=== PATIENT | male | born 1950 | race Caucasian/White ===

== ENCOUNTER 2022-02-18 16:11 | Inpatient (IN) ==
[2022-02-18 19:31] LABS: ABS Lymphocytes 0.3 10^3/ul (1.0-4.8); ABS Monocytes 0.6 10^3/ul (0-0.8); ABS Neutrophils 9.1 10^3/ul (1.5-7.7); Hematocrit 29 % (42-52); Hemoglobin 9.4 g/dL (14.0-18.0); Lymphocyte % 3.5 %; Mean Corpuscular HGB Conc 33 g/dL (31-36); Mean Corpuscular Hemoglobin 29 pg (27-31); Mean Corpuscular Volume 87 fL (80-94); Mean Platelet Volume 9.4 fL (7.4-10.4); Platelet Count 144 10^3/uL (150-450); Red Cell Distribution Width 18 % (10-15); White Blood Count 10.1 10^3/uL (3.5-10.8)
[2022-02-18] MEDS ORDERED: Piperacillin/Tazobac ADVAN 3.375 GM in NS 0.9% 100 ml BAG 100 ML IV ONE (20:13)
[2022-02-18 20:25] LABS: ALT 274 U/L (7-52); AST 137 U/L (13-39); Albumin 3.7 g/dL (3.2-5.2); Albumin/Globulin Ratio 1.6 (1-3); Alkaline Phosphatase 355 U/L (35-149); Anion Gap 14 mmol/L (2-11); Blood Urea Nitrogen 17 mg/dL (6-24); C Reactive Protein 227.03 mg/L (<8.01); CO2 Carbon Dioxide 25 mmol/L (22-32); Calcium 8.6 mg/dL (8.6-10.3); Chloride 100 mmol/L (101-111); Globulin 2.3 g/dL (2-4); Glucose 166 mg/dL (70-100); Magnesium 1.6 mg/dL (1.9-2.7); Potassium 4.2 mmol/L (3.5-5.0); Sodium 139 mmol/L (135-145); eGFR CKD-EPI 72.9 (>60)
[2022-02-18 20:33] LABS: Lipase < 10 U/L (11.0-82.0)
[2022-02-18] MEDS ORDERED: Zosyn per Pharmacy NOTE FOLLOW UP SCH (21:00)
[2022-02-18] MEDS ORDERED: Magnesium Sulfate IV 3 GM in NS 0.9% 100 ml BAG 100 ML IVPB ONE (21:10)
[2022-02-18] MEDS: Pantoprazole VIAL 40 MG VIAL IV SCH (21:54)
[2022-02-18] MEDS ORDERED: Magnesium Sulfate 2 GM IV (Premix) IVPB ONE (22:00)
[2022-02-18] MEDS ORDERED: Iohexol 350 (CONTRAST) 500 ML MDV IV ONE (22:40)
[2022-02-18] MEDS ORDERED: Magnesium Sulfate 1 GM IV 1 GM/100 ML BAG IV ONE (23:00)
[2022-02-18] MEDS: Insulin GLARGINE 100 un/ml 10 ml VIAL SUBCUT SCH (23:30)
[2022-02-19] MEDS: ZOSYN 3.375 GM Q8H per EXTENDED INFUSION IV SCH ×3 (02:48→19:30)
[2022-02-19 03:08] LABS: Urine Appearance Cloudy; Urine Color Yellow; Urine Ketones Negative (Negative); Urine Specific Gravity 1.015 (1.005-1.030); Urine Urobilinogen 1.0 (Negative) (Negative); Urine pH 5.5 (5.0-9.0)
[2022-02-19 03:09] LABS: Urine Blood 3+ (Large) (Negative); Urine Glucose Negative (Negative); Urine Nitrite Negative (Negative); Urine Protein 1+ (30 mg/dL) (Negative)
[2022-02-19 03:18] LABS: Urine Bacteria Absent (Absent); Urine Red Blood Cell 3+(>10/hpf) (Absent); Urine Squamous Epithelial Cell Present (Absent); Urine White Blood Cell 1+(6-10/hpf) (Absent)
[2022-02-19 05:21] LABS: ABS Lymphocytes 0.7 10^3/ul (1.0-4.8); ABS Monocytes 1.1 10^3/ul (0-0.8); ABS Neutrophils 10.5 10^3/ul (1.5-7.7); Hematocrit 26 % (42-52); Hemoglobin 8.7 g/dL (14.0-18.0); Lymphocyte % 5.9 %; Mean Corpuscular HGB Conc 33 g/dL (31-36); Mean Corpuscular Hemoglobin 29 pg (27-31); Mean Corpuscular Volume 86 fL (80-94); Mean Platelet Volume 9.9 fL (7.4-10.4); Platelet Count 141 10^3/uL (150-450); Red Blood Count 3.03 10^6 /uL (4.18-5.48); Red Cell Distribution Width 18 % (10-15); White Blood Count 12.3 10^3/uL (3.5-10.8)
[2022-02-19 05:25] LABS: INR 1.39 (0.89-1.11)
[2022-02-19 05:42] LABS: Albumin 3.3 g/dL (3.2-5.2); Albumin/Globulin Ratio 1.5 (1-3); Calcium 8.3 mg/dL (8.6-10.3); Globulin 2.2 g/dL (2-4); Magnesium 2.7 mg/dL (1.9-2.7); Potassium 3.7 mmol/L (3.5-5.0); Total Bilirubin 1.3 mg/dL (0.2-1.0); Total Protein 5.5 g/dL (6.4-8.9); eGFR CKD-EPI 88.4 (>60)
[2022-02-19] MEDS ORDERED: Albuterol HFA INHALER 8 gm MDI INH SCH (07:00)
[2022-02-19] MEDS ORDERED: Perflutren Lipid Microsphere 3 ML VIAL ONE (08:09)
[2022-02-19] MEDS: Pantoprazole VIAL 40 MG VIAL IV SCH ×2 (10:16→21:23)
[2022-02-19 13:00] LABS: Hematocrit 30 % (42-52); Hemoglobin 9.7 g/dL (14.0-18.0)
[2022-02-19] MEDS ORDERED: Midazolam 10 mg/10 ml VIAL 1 mg/ml 10 ml VIAL (10 mg) ONE (15:09)
[2022-02-19] MEDS ORDERED: fentaNYL 100 mcg/2 ml 50 MCG/ML VIAL ONE (15:09)
[2022-02-19] MEDS ORDERED: PEG 3000 GI LAVAGE 1 GALLON PO ONE (20:30)
[2022-02-19] MEDS: Insulin GLARGINE 100 un/ml 10 ml VIAL SUBCUT SCH (21:23)
[2022-02-19] MEDS: PALIPERIDONE 1.5 MG PO SCH (21:32)
[2022-02-20] MEDS: ZOSYN 3.375 GM Q8H per EXTENDED INFUSION IV SCH ×3 (00:21→17:50)
[2022-02-20 05:47] LABS: ABS Lymphocytes 0.8 10^3/ul (1.0-4.8); ABS Monocytes 0.8 10^3/ul (0-0.8); ABS Neutrophils 5.7 10^3/ul (1.5-7.7); Eosinophil % 0.6 %; Hematocrit 26 % (42-52); Hemoglobin 8.5 g/dL (14.0-18.0); Lymphocyte % 10.8 %; Mean Corpuscular HGB Conc 33 g/dL (31-36); Mean Corpuscular Hemoglobin 29 pg (27-31); Mean Corpuscular Volume 86 fL (80-94); Mean Platelet Volume 10.1 fL (7.4-10.4); Platelet Count 142 10^3/uL (150-450); Red Blood Count 2.96 10^6 /uL (4.18-5.48); Red Cell Distribution Width 18 % (10-15); White Blood Count 7.3 10^3/uL (3.5-10.8)
[2022-02-20 06:28] LABS: Potassium 3.7 mmol/L (3.5-5.0); eGFR CKD-EPI 92.3 (>60)
[2022-02-20] MEDS: Pantoprazole VIAL 40 MG VIAL IV SCH (10:01)
[2022-02-20 14:27] LABS: ABS Basophils 0.1 10^3/ul (0-0.2); ABS Eosinophils 0.1 10^3/ul (0-0.6); ABS Lymphocytes 2.9 10^3/ul (1.0-4.8); ABS Monocytes 1.2 10^3/ul (0-0.8); ABS Neutrophils 7.2 10^3/ul (1.5-7.7); Eosinophil % 0.8 %; Hematocrit 28 % (42-52); Hemoglobin 8.9 g/dL (14.0-18.0); Lymphocyte % 25.4 %; Mean Corpuscular HGB Conc 32 g/dL (31-36); Mean Corpuscular Hemoglobin 28 pg (27-31); Mean Corpuscular Volume 87 fL (80-94); Mean Platelet Volume 9.8 fL (7.4-10.4); Nucleated Red Blood Cells % 0.1; Platelet Count 174 10^3/uL (150-450); Red Blood Count 3.17 10^6 /uL (4.18-5.48); Red Cell Distribution Width 18 % (10-15); White Blood Count 11.5 10^3/uL (3.5-10.8)
[2022-02-20] MEDS ORDERED: .Amiodarone 24HR ONLY IV Protocol Order Note IV ONE (14:35)
[2022-02-20] MEDS ORDERED: Amiodarone 360 MG IVPREMIX 360 MG/200 ML BAG IV SCH (14:45)
[2022-02-20 15:09] LABS: Albumin 3.2 g/dL (3.2-5.2); Albumin/Globulin Ratio 1.3 (1-3); Calcium 8.4 mg/dL (8.6-10.3); Globulin 2.5 g/dL (2-4); Magnesium 2.2 mg/dL (1.9-2.7); Potassium 3.4 mmol/L (3.5-5.0); Total Bilirubin 1.2 mg/dL (0.2-1.0); Total Protein 5.7 g/dL (6.4-8.9); eGFR CKD-EPI 77.2 (>60)
[2022-02-20] MEDS: KCL 20 MEQ/100 ML IVPREMIX 20 MEQ/100 ML BAG IV SCH ×2 (16:27→18:36)
[2022-02-20 18:09] LABS: High Sensitivity Troponin 1 Hr 375 pg/mL (<20)
[2022-02-20] MEDS ORDERED: Morphine 2 MG/ML SYRINGE IV ONE ×2 (18:19→23:22)
[2022-02-20] MEDS: Amiodarone 360 MG IVPREMIX 360 MG/200 ML BAG IV SCH (19:43)
[2022-02-20] MEDS: Insulin GLARGINE 100 un/ml 10 ml VIAL SUBCUT SCH (20:02)
[2022-02-20] MEDS: PALIPERIDONE 1.5 MG PO SCH (20:26)
[2022-02-20] MEDS ORDERED: Lidocaine PATCH 5% PATCH TRANSDERM ONE (23:22)
[2022-02-21] MEDS: ZOSYN 3.375 GM Q8H per EXTENDED INFUSION IV SCH ×3 (02:16→17:39)
[2022-02-21 04:38] LABS: Hematocrit 27 % (42-52); Hemoglobin 8.9 g/dL (14.0-18.0); Mean Corpuscular HGB Conc 33 g/dL (31-36); Mean Corpuscular Hemoglobin 28 pg (27-31); Mean Corpuscular Volume 85 fL (80-94); Mean Platelet Volume 9.6 fL (7.4-10.4); Platelet Count 152 10^3/uL (150-450); Red Blood Count 3.17 10^6 /uL (4.18-5.48); Red Cell Distribution Width 18 % (10-15); White Blood Count 9.4 10^3/uL (3.5-10.8)
[2022-02-21 05:43] LABS: Blood Urea Nitrogen 14 mg/dL (6-24); CO2 Carbon Dioxide 20 mmol/L (22-32); Calcium 7.2 mg/dL (8.6-10.3); Chloride 105 mmol/L (101-111); Glucose 207 mg/dL (70-100); Magnesium 1.7 mg/dL (1.9-2.7); Sodium 143 mmol/L (135-145); eGFR CKD-EPI 99.2 (>60)
[2022-02-21 05:53] LABS: Anion Gap 18 mmol/L (2-11)
[2022-02-21] MEDS ORDERED: Magnesium Sulfate IV 3 GM in NS 0.9% 100 ml BAG 100 ML IVPB ONE (06:04)
[2022-02-21] MEDS ORDERED: Magnesium Sulfate 2 GM IV (Premix) IVPB ONE (06:30)
[2022-02-21] MEDS ORDERED: Magnesium Sulfate 1 GM IV 1 GM/100 ML BAG IV ONE (06:30)
[2022-02-21 06:48] LABS: Phosphorus 3.7 mg/dL (2.5-5.0); Potassium Redraw 3.6 mmol/L (3.5-5.0)
[2022-02-21] MEDS ORDERED: Morphine 2 MG/ML SYRINGE IV ONE (07:18)
[2022-02-21 07:19] LABS: ABS Eosinophils 0.1 10^3/ul (0-0.6); ABS Lymphocytes 0.9 10^3/ul (1.0-4.8); ABS Monocytes 1.2 10^3/ul (0-0.8); ABS Neutrophils 7.1 10^3/ul (1.5-7.7); Eosinophil % 1.6 %; Lymphocyte % 9.9 %; Nucleated Red Blood Cells % 0.1
[2022-02-21] MEDS ORDERED: Potassium Chloride LIQUID 20 MEQ/15 ML LIQUID PO ONE (07:45)
[2022-02-21] MEDS ORDERED: Magnesium Sulf 4 GM/100 ML IV 4,000 MG/100 ML BAG IVPB ONE (07:45)
[2022-02-21] MEDS: Amiodarone 360 MG IVPREMIX 360 MG/200 ML BAG IV SCH (08:07)
[2022-02-21] MEDS ORDERED: Dextrose 50% Syringe 50 ml 25 GM/50 ML SYRINGE IV PUSH PRN (11:54)
[2022-02-21] MEDS: Amiodarone 400 mg TAB PO SCH (19:24)
[2022-02-21] MEDS: Insulin GLARGINE 100 un/ml 10 ml VIAL SUBCUT SCH (22:23)
[2022-02-21] MEDS ORDERED: Lidocaine PATCH 5% PATCH TRANSDERM ONE (23:15)
[2022-02-22] MEDS: Albuterol/Ipratropium NEB.SOL (2.5/0.5 MG) 3 ML NEB.SOLN INH PRN ×2 (00:04→07:33)
[2022-02-22] MEDS: ZOSYN 3.375 GM Q8H per EXTENDED INFUSION IV SCH ×3 (01:45→19:23)
[2022-02-22 05:47] LABS: ABS Basophils 0.1 10^3/ul (0-0.2); ABS Eosinophils 0.2 10^3/ul (0-0.6); ABS Lymphocytes 1.3 10^3/ul (1.0-4.8); ABS Monocytes 1.3 10^3/ul (0-0.8); ABS Neutrophils 6.8 10^3/ul (1.5-7.7); Eosinophil % 2.1 %; Hematocrit 27 % (42-52); Hemoglobin 8.7 g/dL (14.0-18.0); Lymphocyte % 13.5 %; Mean Corpuscular HGB Conc 33 g/dL (31-36); Mean Corpuscular Hemoglobin 28 pg (27-31); Mean Corpuscular Volume 86 fL (80-94); Mean Platelet Volume 9.6 fL (7.4-10.4); Nucleated Red Blood Cells % 0.1; Platelet Count 179 10^3/uL (150-450); Red Blood Count 3.09 10^6 /uL (4.18-5.48); Red Cell Distribution Width 18 % (10-15); White Blood Count 9.8 10^3/uL (3.5-10.8)
[2022-02-22 06:22] LABS: Calcium 8.1 mg/dL (8.6-10.3); Potassium 4.2 mmol/L (3.5-5.0); eGFR CKD-EPI 77.2 (>60)
[2022-02-22] MEDS: Amiodarone 400 mg TAB PO SCH ×2 (07:31→20:28)
[2022-02-22] MEDS: Insulin GLARGINE 100 un/ml 10 ml VIAL SUBCUT SCH (22:55)
[2022-02-23] MEDS: ZOSYN 3.375 GM Q8H per EXTENDED INFUSION IV SCH ×3 (01:09→18:22)
[2022-02-23] MEDS: Albuterol/Ipratropium NEB.SOL (2.5/0.5 MG) 3 ML NEB.SOLN INH PRN (05:01)
[2022-02-23 06:31] LABS: Hematocrit 27 % (42-52); Hemoglobin 8.9 g/dL (14.0-18.0); Mean Corpuscular HGB Conc 33 g/dL (31-36); Mean Corpuscular Hemoglobin 28 pg (27-31); Mean Corpuscular Volume 85 fL (80-94); Mean Platelet Volume 9.4 fL (7.4-10.4); Platelet Count 210 10^3/uL (150-450); Red Blood Count 3.22 10^6 /uL (4.18-5.48); Red Cell Distribution Width 18 % (10-15); White Blood Count 11.5 10^3/uL (3.5-10.8)
[2022-02-23 06:56] LABS: Calcium 8.6 mg/dL (8.6-10.3); Magnesium 1.8 mg/dL (1.9-2.7); Potassium 4.3 mmol/L (3.5-5.0); eGFR CKD-EPI 95.5 (>60)
[2022-02-23] MEDS: Amiodarone 400 mg TAB PO SCH ×2 (08:02→20:36)
[2022-02-23] MEDS ORDERED: Magnesium Sulf 4 GM/100 ML IV 4,000 MG/100 ML BAG IVPB ONE (12:00)
[2022-02-23] MEDS ORDERED: Nicotine GUM 2MG FRUIT FLAVOR PO PRN (12:13)
[2022-02-23 14:46] LABS: Vitamin D Total 25(OH) 38.3 ng/mL (20-50)
[2022-02-23] MEDS: Aspirin EC 81 mg TAB.EC (enteric coated) PO SCH (15:01)
[2022-02-23] MEDS: Insulin GLARGINE 100 un/ml 10 ml VIAL SUBCUT SCH (20:37)
[2022-02-23] MEDS: Albuterol HFA INHALER 8 gm MDI INH PRN (23:01)
[2022-02-24] MEDS: ZOSYN 3.375 GM Q8H per EXTENDED INFUSION IV SCH ×3 (01:34→17:53)
[2022-02-24 07:09] LABS: Albumin 3.1 g/dL (3.2-5.2); Albumin/Globulin Ratio 1.2 (1-3); C Reactive Protein 110.33 mg/L (<8.01); Calcium 8.5 mg/dL (8.6-10.3); Globulin 2.6 g/dL (2-4); Magnesium 2.2 mg/dL (1.9-2.7); Potassium 4.3 mmol/L (3.5-5.0); Total Bilirubin 0.7 mg/dL (0.2-1.0); Total Protein 5.7 g/dL (6.4-8.9)
[2022-02-24 07:09] LABS: Hematocrit 27 % (42-52); Hemoglobin 8.5 g/dL (14.0-18.0); Mean Corpuscular HGB Conc 32 g/dL (31-36); Mean Corpuscular Hemoglobin 27 pg (27-31); Mean Corpuscular Volume 86 fL (80-94); Mean Platelet Volume 9.4 fL (7.4-10.4); Platelet Count 235 10^3/uL (150-450); Red Blood Count 3.09 10^6 /uL (4.18-5.48); Red Cell Distribution Width 18 % (10-15); White Blood Count 11.2 10^3/uL (3.5-10.8)
[2022-02-24] MEDS ORDERED: Aspirin EC 81 mg TAB.EC (enteric coated) PO SCH (09:00)
[2022-02-24] MEDS: Amiodarone 400 mg TAB PO SCH ×2 (09:55→21:24)
[2022-02-24] MEDS: Aspirin EC 81 mg TAB.EC (enteric coated) PO SCH (09:56)
[2022-02-24] MEDS ORDERED: Furosemide 40 mg/4 ml IV VIAL IV ONE (13:18)
[2022-02-24] MEDS: Albuterol HFA INHALER 8 gm MDI INH PRN (13:19)
[2022-02-24] MEDS: Albuterol/Ipratropium NEB.SOL (2.5/0.5 MG) 3 ML NEB.SOLN INH PRN (20:00)
[2022-02-24] MEDS: Insulin GLARGINE 100 un/ml 10 ml VIAL SUBCUT SCH (21:42)
[2022-02-25] MEDS: ZOSYN 3.375 GM Q8H per EXTENDED INFUSION IV SCH ×3 (03:35→18:17)
[2022-02-25 05:42] LABS: Hematocrit 26 % (42-52); Hemoglobin 8.3 g/dL (14.0-18.0); Mean Corpuscular HGB Conc 32 g/dL (31-36); Mean Corpuscular Hemoglobin 28 pg (27-31); Mean Corpuscular Volume 86 fL (80-94); Mean Platelet Volume 9.2 fL (7.4-10.4); Platelet Count 264 10^3/uL (150-450); Red Blood Count 3.03 10^6 /uL (4.18-5.48); Red Cell Distribution Width 19 % (10-15); White Blood Count 10.3 10^3/uL (3.5-10.8)
[2022-02-25 06:01] LABS: Calcium 8.3 mg/dL (8.6-10.3); Potassium 4.1 mmol/L (3.5-5.0)
[2022-02-25] MEDS: Aspirin EC 81 mg TAB.EC (enteric coated) PO SCH (11:42)
[2022-02-25] MEDS: Amiodarone 400 mg TAB PO SCH ×2 (11:43→21:34)
[2022-02-25] MEDS: Albuterol HFA INHALER 8 gm MDI INH PRN ×2 (17:40→21:40)
[2022-02-25] MEDS: Insulin GLARGINE 100 un/ml 10 ml VIAL SUBCUT SCH (21:35)
[2022-02-26 05:21] LABS: ABS Lymphocytes 1.8 10^3/ul (1.0-4.8); ABS Monocytes 0.9 10^3/ul (0-0.8); ABS Neutrophils 10.5 10^3/ul (1.5-7.7); Hematocrit 27 % (42-52); Hemoglobin 8.7 g/dL (14.0-18.0); Lymphocyte % 13.3 %; Mean Corpuscular HGB Conc 32 g/dL (31-36); Mean Corpuscular Hemoglobin 28 pg (27-31); Mean Corpuscular Volume 87 fL (80-94); Mean Platelet Volume 9.4 fL (7.4-10.4); Nucleated Red Blood Cells % 0.2; Platelet Count 281 10^3/uL (150-450); Red Blood Count 3.11 10^6 /uL (4.18-5.48); Red Cell Distribution Width 18 % (10-15); White Blood Count 13.3 10^3/uL (3.5-10.8)
[2022-02-26 05:35] LABS: Calcium 8.8 mg/dL (8.6-10.3); Potassium 4.5 mmol/L (3.5-5.0); eGFR CKD-EPI 74.6 (>60)
[2022-02-26] MEDS: Albuterol HFA INHALER 8 gm MDI INH PRN ×3 (06:08→20:21)
[2022-02-26] MEDS: Aspirin EC 81 mg TAB.EC (enteric coated) PO SCH (08:31)
[2022-02-26] MEDS: Amiodarone 400 mg TAB PO SCH ×2 (08:31→20:18)
[2022-02-26] MEDS: Albuterol/Ipratropium NEB.SOL (2.5/0.5 MG) 3 ML NEB.SOLN INH PRN ×2 (08:51→15:37)
[2022-02-26] MEDS ORDERED: Furosemide 40 mg/4 ml IV VIAL IV SLOW PU ONE (11:01)
[2022-02-26] MEDS ORDERED: Albuterol/Ipratropium NEB.SOL (2.5/0.5 MG) 3 ML NEB.SOLN INH PRN (16:14)
[2022-02-26] MEDS: Insulin GLARGINE 100 un/ml 10 ml VIAL SUBCUT SCH (20:17)
[2022-02-27 05:58] LABS: ABS Lymphocytes 2.5 10^3/ul (1.0-4.8); ABS Monocytes 0.9 10^3/ul (0-0.8); ABS Neutrophils 11.6 10^3/ul (1.5-7.7); Hematocrit 28 % (42-52); Hemoglobin 8.8 g/dL (14.0-18.0); Lymphocyte % 16.7 %; Mean Corpuscular HGB Conc 32 g/dL (31-36); Mean Corpuscular Hemoglobin 28 pg (27-31); Mean Corpuscular Volume 86 fL (80-94); Mean Platelet Volume 9.2 fL (7.4-10.4); Nucleated Red Blood Cells % 0.1; Platelet Count 305 10^3/uL (150-450); Red Cell Distribution Width 19 % (10-15); White Blood Count 15.1 10^3/uL (3.5-10.8)
[2022-02-27 06:20] LABS: Albumin 3.5 g/dL (3.2-5.2); Albumin/Globulin Ratio 1.2 (1-3); Calcium 9.2 mg/dL (8.6-10.3); Potassium 4.3 mmol/L (3.5-5.0); Total Bilirubin 0.6 mg/dL (0.2-1.0); Total Protein 6.5 g/dL (6.4-8.9); eGFR CKD-EPI 64.9 (>60)
[2022-02-27] MEDS: Aspirin EC 81 mg TAB.EC (enteric coated) PO SCH (08:55)
[2022-02-27] MEDS: Amiodarone 400 mg TAB PO SCH ×2 (08:56→20:20)
[2022-02-27] MEDS: Albuterol HFA INHALER 8 gm MDI INH PRN (11:59)
[2022-02-27] MEDS: Insulin GLARGINE 100 un/ml 10 ml VIAL SUBCUT SCH (20:21)
[2022-02-28 06:10] LABS: ABS Lymphocytes 2.2 10^3/ul (1.0-4.8); ABS Monocytes 1.1 10^3/ul (0-0.8); ABS Neutrophils 12.1 10^3/ul (1.5-7.7); Eosinophil % 0.1 %; Hematocrit 27 % (42-52); Hemoglobin 8.5 g/dL (14.0-18.0); Lymphocyte % 14.2 %; Mean Corpuscular HGB Conc 31 g/dL (31-36); Mean Corpuscular Hemoglobin 27 pg (27-31); Mean Corpuscular Volume 87 fL (80-94); Mean Platelet Volume 9.3 fL (7.4-10.4); Nucleated Red Blood Cells % 0.2; Platelet Count 272 10^3/uL (150-450); Red Blood Count 3.17 10^6 /uL (4.18-5.48); Red Cell Distribution Width 19 % (10-15); White Blood Count 15.4 10^3/uL (3.5-10.8)
[2022-02-28 06:27] LABS: Calcium 9.1 mg/dL (8.6-10.3); Potassium 4.7 mmol/L (3.5-5.0); eGFR CKD-EPI 71.3 (>60)
[2022-02-28] MEDS: Aspirin EC 81 mg TAB.EC (enteric coated) PO SCH (09:19)
[2022-02-28] MEDS: Insulin GLARGINE 100 un/ml 10 ml VIAL SUBCUT SCH (21:04)
[2022-03-01 05:28] LABS: ABS Lymphocytes 1.7 10^3/ul (1.0-4.8); ABS Neutrophils 12.7 10^3/ul (1.5-7.7); Hematocrit 28 % (42-52); Hemoglobin 8.4 g/dL (14.0-18.0); Lymphocyte % 11.2 %; Mean Corpuscular HGB Conc 31 g/dL (31-36); Mean Corpuscular Hemoglobin 27 pg (27-31); Mean Corpuscular Volume 87 fL (80-94); Mean Platelet Volume 9.6 fL (7.4-10.4); Nucleated Red Blood Cells % 0.1; Platelet Count 292 10^3/uL (150-450); Red Blood Count 3.16 10^6 /uL (4.18-5.48); Red Cell Distribution Width 19 % (10-15); White Blood Count 15.5 10^3/uL (3.5-10.8)
[2022-03-01 05:50] LABS: Calcium 9.1 mg/dL (8.6-10.3); Potassium 4.6 mmol/L (3.5-5.0); eGFR CKD-EPI 74.6 (>60)
[2022-03-01] MEDS: Aspirin EC 81 mg TAB.EC (enteric coated) PO SCH (08:02)
[2022-03-01] MEDS: Albuterol HFA INHALER 8 gm MDI INH PRN ×2 (08:03→14:30)
[2022-03-01] MEDS: Insulin GLARGINE 100 un/ml 10 ml VIAL SUBCUT SCH (20:07)
[2022-03-02 05:51] LABS: Hematocrit 27 % (42-52); Hemoglobin 8.9 g/dL (14.0-18.0); Mean Corpuscular HGB Conc 33 g/dL (31-36); Mean Corpuscular Hemoglobin 29 pg (27-31); Mean Corpuscular Volume 88 fL (80-94); Mean Platelet Volume 9.4 fL (7.4-10.4); Platelet Count 285 10^3/uL (150-450); Red Blood Count 3.09 10^6 /uL (4.18-5.48); Red Cell Distribution Width 19 % (10-15)
[2022-03-02] MEDS: Albuterol HFA INHALER 8 gm MDI INH PRN ×3 (05:53→20:15)
[2022-03-02 05:59] LABS: ABS Eosinophils 0.1 10^3/ul (0-0.6); ABS Lymphocytes 1.8 10^3/ul (1.0-4.8); ABS Monocytes 0.8 10^3/ul (0-0.8); ABS Neutrophils 10.3 10^3/ul (1.5-7.7); Eosinophil % 0.5 %; Nucleated Red Blood Cells % 0.1
[2022-03-02 06:08] LABS: Calcium 8.9 mg/dL (8.6-10.3); Potassium 4.8 mmol/L (3.5-5.0); eGFR CKD-EPI 81.9 (>60)
[2022-03-02] MEDS ORDERED: Albuterol/Ipratropium NEB.SOL (2.5/0.5 MG) 3 ML NEB.SOLN INH ONE (07:55)
[2022-03-02] MEDS: Aspirin EC 81 mg TAB.EC (enteric coated) PO SCH (08:28)
[2022-03-02] MEDS: Insulin GLARGINE 100 un/ml 10 ml VIAL SUBCUT SCH (21:37)
[2022-03-03] MEDS: Aspirin EC 81 mg TAB.EC (enteric coated) PO SCH (07:46)
[2022-03-03] MEDS: Albuterol HFA INHALER 8 gm MDI INH PRN (18:16)
[2022-03-03] MEDS: Insulin GLARGINE 100 un/ml 10 ml VIAL SUBCUT SCH (19:52)
[2022-03-04 05:51] LABS: ABS Eosinophils 0.2 10^3/ul (0-0.6); ABS Monocytes 0.8 10^3/ul (0-0.8); ABS Neutrophils 8.1 10^3/ul (1.5-7.7); Hematocrit 27 % (42-52); Hemoglobin 8.8 g/dL (14.0-18.0); Mean Corpuscular HGB Conc 33 g/dL (31-36); Mean Corpuscular Hemoglobin 29 pg (27-31); Mean Corpuscular Volume 88 fL (80-94); Mean Platelet Volume 9.1 fL (7.4-10.4); Platelet Count 277 10^3/uL (150-450); Red Blood Count 3.05 10^6 /uL (4.18-5.48); Red Cell Distribution Width 19 % (10-15); White Blood Count 11.1 10^3/uL (3.5-10.8)
[2022-03-04] MEDS: Aspirin EC 81 mg TAB.EC (enteric coated) PO SCH (10:10)
[2022-03-04 10:19] LABS: Rapid COVID-19 Molecular Undetected (Undetected)
[2022-03-04] MEDS: Albuterol HFA INHALER 8 gm MDI INH PRN (11:28)
[2022-03-04 13:14] VITALS: BP 135/70
== END 2022-03-04 14:35 | disposition swing bed (61) | DRG 445 ==
LOC: INTOOBSV 18:23 → SSU 18:23 → SUATTDRO 18:43 → ICU 02-20 14:08 → SUATTDRO 02-20 16:41 → MEDTELE 02-21 18:19
PROVIDERS: ADMIT Hospitalist; ATTEND Internal Medicine